=== PATIENT | male | born 2005 | race Two or more races ===

== ENCOUNTER 2024-07-01 12:41 | Emergency (ER) | payer MEDICAID, OTHER ==
[~2024-07-01] VITALS: Ht 162.6 cm; Wt 78.2 kg
[2024-07-01 14:11] VITALS: BP 135/82; PULSE 95; RESP 16; TEMP 98.2; O2SAT 98
[2024-07-01] MEDS: DexAMETHasone SOD PHOS 10MG/1ML VIAL INJ IM ONE (15:02)
[2024-07-01] MEDS: methylPREDNISolone SOD SUCC 125 MG/2 ML VL IM ONE (15:24)
--- NOTE | 2024-07-01 15:44 | DVH ---
EXAM: US TESTICULAR ULTRASOUND Clinical History: Swelling and pain Comparison: None TECHNIQUE: Grayscale color-flow and focus duplex Doppler also examination of the contents of the scro karrie was performed. Findings: Right testis measures 3.8 x 2.0 x 3.5 cm. Right epididymal head measures 1.2 cm. No right hydrocele o r varicocele. Left testis measures 3.9 x 2.1 x 2.9 cm. Left epididymal head measures 1.2 cm. No left hydrocele or v aricocele. Homogeneous echotexture noted in both testes without evidence of intratesticular masses. Arterial and venous flow is documented to both testes. Impression: 1. No evidence of testicular torsion or intratesticular masses. 2. No hydrocele or varicocele bilaterally.
[2024-07-01 15:47] LABS: Basophils # (auto) 0 10 ^3/uL (0-0.2); Basophils % (auto) 0.2 % (0.0-2.0); Eosinophils # (auto) 0 10 ^3/uL (0-0.8); Eosinophils % (auto) 0.2 % (0.0-7.0); Hematocrit 47.1 % (41.0-53.0); Lymphocytes % (auto) 21.7 % (10.0-50.0); Mean Corpuscular Hemoglobin 31.2 pg (28.0-32.0); Mean Corpuscular Volume 91.7 fL (80.0-100.0); Monocytes # (auto) 0.5 10 ^3/uL (0-1.3); Neutrophils % (auto) 66.9 % (37.0-80.0); Nucleated Red Blood Cells % 0.2 %; Platelet Count (auto) 223 10^3/uL (140-450); Red Blood Cells 5.13 10^6/uL (4.5-5.90); White Blood Cell 4.5 10^3/uL (4.4-10.8)
[2024-07-01 15:51] LABS: Urine Bacteria None Seen /hpf (None Seen)
--- NOTE | 2024-07-01 16:05 | ED.PDOC ---
HPI Allergic reaction HPI Comments A 19-year-old male that comes in with hives. Patient was seen at [facility], [place] last week was given Bactrim for a urinary tract infection as well as some testicle pain. He took the antibiotics no improvement in his symptoms he still has testicular pain has pain in his low back and now he had an allergic reaction to the antibiotics.. Denies any fever and chills. Hives started this morning. Chief Complaint: Rash Time Seen by MD: 13:47 Primary Care Provider: none Reviewed Notes: Nurses Notes, Medications, Allergies Allergies: Coded Allergies: NO KNOWN ALLERGIES (Unverified , 07/01/24) Information Source: Patient Mode of Arrival: Ambulatory Past Medical History PAST MEDICAL HISTORY: Denies Social History Smoker: Cigarettes Alcohol: Denies ETOH Use Drugs: Denies Drug Use Lives In: Home Constitutional: reports: chills, fever Gastrointestinal: reports: abdominal pain Genitourinary: reports: burning, flank pain, frequency, testicle pain, testicle swelling Allergic/Immunocompromised: reports: Hives, Itching All Other Systems: Reviewed and Negative Physical Exam General Appearance: No Apparent Distress, Normal HEENT: Normal ENT Inspection, Pharynx Normal, TMs Normal Neck: Non-Tender Respiratory: Lungs Clear, Normal Breath Sounds Cardiovascular: Regular Rate/Rhythm Breast Exam: Deferred Gastrointestinal: Normal Bowel Sounds, Soft Genitalia: Testicle Pelvic: Deferred Rectal: Deferred Extremities: No calf tenderness, Normal inspection, Non-tender Neurologic: Alert, Normal Affect, Normal Mood Cerebellar Function: NOT DONE Reflexes: NOT DONE Skin: Dry, Warm Lymphatic: No Adenopathy Was a procedure done? Was a procedure done?: No Differential diagnosis (all) Differential Diagnosis: Anaphylaxis, Urticaria X-Ray, Labs, Meds, VS Vital Signs Date Time Temp Pulse Resp B/P (MAP) Pulse Ox O2 Delivery O2 Flow Rate FiO2 07/01/24 14:11 98.2 95 16 135/82 (99) 98 98.2 07/01/24 14:11 95 16 98 Room Air 07/01/24 13:03 99.5 103 17 143/78 (99) 94 Lab Test 07/01/24 15:21 07/01/24 14:28 Range/Units White Blood Count 4.5 4.4-10.8 10^3/uL Red Blood Count 5.13 4.5-5.90 10^6/uL Hemoglobin 16.0 13.5-17.5 g/dL Hematocrit 47.1 41.0-53.0 % Mean Corpuscular Volume 91.7 80.0-100.0 fL Mean Corpuscular Hemoglobin 31.2 28.0-32.0 pg Mean Corpuscular Hemoglobin Concent 34.0 32.0-36.0 g/dL Red Cell Distribution Width 13.0 11.8-14.3 % Platelet Count 223 140-450 10^3/uL Mean Platelet Volume 7.3 6.9-10.8 fL Neutrophils (%) (Auto) 66.9 37.0-80.0 % Lymphocytes (%) (Auto) 21.7 10.0-50.0 % Monocytes (%) (Auto) 11.0 0.0-12.0 % Eosinophils (%) (Auto) 0.2 0.0-7.0 % Basophils (%) (Auto) 0.2 0.0-2.0 % Neutrophils # (Auto) 3.0 1.6-8.6 10 ^3/uL Lymphocytes # (Auto) 1.0 0.4-5.4 10 ^3/uL Monocytes # (Auto) 0.5 0-1.3 10 ^3/uL Eosinophils # (Auto) 0 0-0.8 10 ^3/uL Basophils # (Auto) 0 0-0.2 10 ^3/uL Nucleated Red Blood Cells 0.2 % Urine RBC <1 0 - 3 /hpf Urine Microscopic WBC 2 0-3 /HPF Urine Squamous Epithelial Cells Few <5 /hpf Urine Bacteria None seen None Seen /hpf Current Medications Medications (Trade) Dose Ordered Sig/[place] Route Start Time Stop Time Status Last Admin Methylprednisolone Sodium Succinate (Solu Medrol) 125 mg ONCE ONCE IM 07/01/24 15:15 07/01/24 15:16 DC 07/01/24 15:24 X-Ray, Labs, Meds, VS Comment Patient seen and examined by me. Ultrasound was ordered, was normal and did not show any epididymitis. Patient was started on Solu-Medrol 125 mg to help with the allergic reaction. States he felt tired but okay after the meds. No shortness a breath itching was better. Patient's labs were good white count was normal. Pending urinalysis results was negative. Patient does not need any additional antibiotics. Send him home on prednisone 40 mg for 4 days to help with the allergic reaction. Patient now knows he can not take any sulfa tablets.. ORDERING PHYSICIAN: KAREN SPEARS PROCEDURE(s): TESUS - TESTICULAR ULTRASOUND REASON: Swelling and pain ORDER NUMBER(s): [id number], ACCESSION NUMBER(s): [id number] EXAM: US TESTICULAR ULTRASOUND Clinical History: Swelling and pain Comparison: None TECHNIQUE: Grayscale color-flow and focus duplex Doppler also examination of the contents of the scrotum was performed. Findings: Right testis measures 3.8 x 2.0 x 3.5 cm. Right epididymal head measures 1.2 cm. No right hydrocele or varicocele. Left testis measures 3.9 x 2.1 x 2.9 cm. Left epididymal head measures 1.2 cm. No left hydrocele or varicocele. Homogeneous echotexture noted in both testes without evidence of intratesticular masses. Arterial and venous flow is documented to both testes. Impression: 1. No evidence of testicular torsion or intratesticular masses. 2. No hydrocele or varicocele bilaterally. Time of 1ST Reevaluation: 16:30 Reevaluation 1ST: Improved Patient Education/Counseling: Diagnosis, Treatment, Prognosis, Need For Follow Up Family Education/Counseling: No Family Present Departure 1 Departure Time of Disposition: 16:31 Impression: Primary Impression: Allergic reaction caused by a drug Disposition: 01 HOME / SELF CARE / HOMELESS Condition: Good Additional Instructions: Start taking the prednisone tomorrow for your allergic reaction you must finish all the doses Ultrasound was normal Your urine test and blood tests were all normal no antibiotics are needed rest, drink lots of fluids Allergic reaction will come and go over the next 4 days and then be completely gone e-Prescriptions Prednisone (Prednisone) 20 Mg Tab 40 MG PO DAILY@BREAKFAST for 5 Days, #5 MG Prov: KAREN SPEARS 07/01/24 Discharged With: Self Critical Care Note Critical Care Time?: No Stability Stability form required: No Heart Score Heart Score: Heart Score Response (Comments) Value History N/A 0 EKG N/A 0 Age N/A 0 Risk Factors N/A 0 Troponin N/A 0 Total 0 KAREN SPEARS Jul 01, 2024 16:05
[2024-07-01 16:13] LABS: Urine Squamous Epithelial Cell FEW /hpf (<5); Urine WBC 2 /HPF (0-3)
[2024-07-01] MEDS ORDERED: PRED20TA2 PO (16:32)
== END 2024-07-01 16:39 | disposition home or self-care (01) ==
LOC: ER 12:45
DX: L50.9 Urticaria, unspecified (principal); T50.905A Adverse effect of unspecified drugs, medicaments and biological substances, initial encounter; F17.210 Nicotine dependence, cigarettes, uncomplicated; N50.819 Testicular pain, unspecified; Y92.89 Other specified places as the place of occurrence of the external cause
CPT/HCPCS: 36415; 76870; 81015; 85025; 96372; 99285; J2919